=== PATIENT | female | born 1995 | race Caucasian/White ===

== ENCOUNTER 2020-05-15 18:36 | Outpatient (CLI) | payer OTHER | END 2020-05-15 20:59 | disposition home or self-care (01) | LOC: GENOP 18:36 | DX: O36.8130 Decreased fetal movements, third trimester, not applicable or unspecified (principal); O99.891 Other specified diseases and conditions complicating pregnancy; R10.9 Unspecified abdominal pain; Z3A.34 34 weeks gestation of pregnancy | CPT/HCPCS: 82731; G0463 ==